=== PATIENT | female | born 1970 | race Caucasian/White ===

== ENCOUNTER 2017-03-18 20:45 | Emergency (ER) | payer MEDICARE ==
--- NOTE | 2017-03-18 21:24 | ERPHSYRPT ---
- History of Present Illness Time Seen by Provider: 03/18/17 21:20 Source: patient, family Exam Limitations: no limitations Patient Subjective Stated Complaint: struck lefty elbow on concrete 2 weeks ago post fall, no other complaints, pain worse in the mornings, no pcp, no meds, no past med issuse. Triage Nursing Assessment: struck lefty elbow on concrete 2 weeks ago post fall , no other complaints, pain worse in the mornings, no pcp, no meds, no past med issuse. no numbness or tingling, skin pwd, no swelling att this time, pt reports swelling in the am. Physician History: pt has fallen on left elbow 2 weeks ago and still has pain and sustained no other injuries and has no other medical complaints at this time; painful ROM left elbow and tender olecranon. Occurred: days ago Method of Injury: fell Quality: constant, aching, sharpness, throbbing Severity of Pain-Max: moderate Severity of Pain-Current: moderate Extremities Pain Location: elbow: left Modifying Factors: Improves With: cold therapy, immobilization Associated Symptoms: none Hx Tetanus, Diphtheria Vaccination/Date Given: Yes - Review of Systems Constitutional: No Fever, No Chills Eyes: No Symptoms Ears, Nose, & Throat: No Symptoms Respiratory: No Cough, No Dyspnea Cardiac: No Chest Pain, No Edema, No Syncope Abdominal/Gastrointestinal: No Abdominal Pain, No Nausea, No Vomiting, No Diarrhea Genitourinary Symptoms: No Dysuria Musculoskeletal: Injury, Joint Pain, No Back Pain, No Neck Pain Skin: No Rash Neurological: No Dizziness, No Focal Weakness, No Sensory Changes Psychological: No Symptoms Endocrine: No Symptoms All Other Systems: Reviewed and Negative - Past Medical History Pertinent Past Medical History: No - Past Surgical History Past Surgical History: No - Social History Smoking Status: Never smoker Exposure to second hand smoke: No Drug Use: none Patient Lives Alone: No - Female History Hx Now: No - Nursing Vital Signs Nursing Vital Signs: Initial Vital Signs Temperature 98.7 F 03/18/17 21:10 Pulse Rate 100 H 03/18/17 21:10 Respiratory Rate 12 03/18/17 21:10 Blood Pressure 120/80 03/18/17 21:10 O2 Sat by Pulse Oximetry 95 03/18/17 21:10 Pain Scale Pain Intensity 6 - Physical Exam General Appearance: alert Eyes, Ears, Nose, Throat Exam: moist mucous membranes Neck Exam: non-tender, supple Cardiovascular/Respiratory Exam: chest non-tender, normal breath sounds, regular rate/rhythm, no respiratory distress Abdominal Exam: non-tender, No guarding Back Exam: normal inspection, No vertebral tenderness Shoulder Exam: normal inspection, non-tender, no evidence of injury, normal ROM Elbow/Forearm Exam: bone tenderness, limited ROM, pain, soft tissue tenderness Wrist Exam: normal inspection, non-tender, no evidence of injury, normal ROM Hand Exam: normal inspection, non-tender, no evidence of injury, normal ROM DTR - Upper Extremity Exam: bicep (R): 2+, bicep (L): 2+, tricep (R): 2+, tricep (L): 2+ Neuro/Tendon Exam: normal sensation, normal motor functions, normal tendon functions, no evidence tendon injury Mental Status Exam: alert, oriented x 3, cooperative Skin Exam: normal color, warm, dry SpO2: 95 Oxygen Delivery: Room Air Procedures - Splinting Location of Splint: Left, Elbow Type of Splint: Orthoglass Long Arm Splint Splint Applied By: ED Nurse Pre-Proc Neuro Vasc Exam: normal Post-Proc Neuro Vasc Exam: neurovascular intact, unchanged from pre-exam - Radiology Exams Left Elbow X-ray Interpretation: Reviewed by me, Other (noobvious fracture but positive anterior fat pad ) Ordered Tests: Active Orders 24 hr Category Date Time Status ELBOW (MINIMUM 3 VIEWS) Stat Exams 03/18/17 21:25 Taken - Progress Progress: improved, re-examined Counseled pt/family regarding: diagnosis, need for follow-up, rad results - Departure Time of Disposition: 22:12 Departure Disposition: Home Clinical Impression: Elbow injury Condition: Good Critical Care Time: No Referrals: MAUREEN CASTRO MD [Primary Care Provider] - Instructions: Elbow Fracture Additional Instructions: We are treating the elbow like it could be fractured although the obvious fracture is not seen yet on x-ray but some indirect findings sugest the possible fracture; followup with your dr for ortho referral if indicated. Prescriptions: Hydrocodone Bit/Acetaminophen [[place] 5-325 Tablet] 1 each PO Q4-6HPRN PRN #10 tablet PRN Reason: Pain
[2017-03-18] MEDS ORDERED: NORCO 5/325 MG PO ONE (22:22)
[2017-03-18] MEDS ORDERED: NORCO 5/325 MG ONE (22:27)
[2017-03-18 22:40] VITALS: BP 131/75; PULSE 92; O2SAT 96
--- NOTE | 2017-03-19 09:04 | XRAY ---
Indication: Pain following injury. Comparison: None 3 views of the left elbow obtained. No bony, articular, or soft tissue abnormalities.
== END 2017-03-18 22:40 | disposition home or self-care (01) ==
LOC: ED 20:45
PROC: 2W39X1Z Immobilization of Left Upper Extremity using Splint (ICD-10-PCS; principal; 2017-03-18)
DX: S50.02XA Contusion of left elbow, initial encounter (principal); W19.XXXA Unspecified fall, initial encounter; M25.522 Pain in left elbow
CPT/HCPCS: 29105; 73080; 99283; A9270-GY

== ENCOUNTER 2017-06-18 08:43 | Emergency (ER) | payer MEDICARE ==
--- NOTE | 2017-06-18 09:22 | ERPHSYRPT ---
- History of Present Illness Time Seen by Provider: 06/18/17 09:01 Source: patient, family Exam Limitations: no limitations Physician History: The patient is a 47-year-old female with her daughter with a number of vague complaints that have been ongoing for several years. After repeated questioning , the patient states that this morning about 6 AM she had a shiver and a chill go up her spine and then had neck pain on the back side of her neck on the left side. She states that when she moves her head from side to side it makes her neck hurt. She states that sometimes she sees double but when she blinks her eyes she no longer sees double. She states that her right side of her body normally has some weakness. Today she states her left side is weaker. She tells me her strong hand is her right hand but she says that she is left- handed. Today she has a headache that comes and goes. Currently at this time she has no headache. She denies nausea, vomiting, or diarrhea. She denies fever or chills. She denies recent trauma. She states that she has chronic neck and chronic low back pain. 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 She has had cortisone injections in her neck and back for the pain in the past. She no longer takes any medicines. She had a doctor in a nearby town but no longer sees him. 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 Timing/Duration: today Severity: mild Modifying Factors: Improves With: movement Associated Symptoms: denies symptoms Allergies/Adverse Reactions: Penicillins Allergy (Verified 06/18/17 09:31) Hx Tetanus, Diphtheria Vaccination/Date Given: Yes - Review of Systems Constitutional: No Fever, No Chills Eyes: Vision Changes, Double Vision Ears, Nose, & Throat: No Symptoms Respiratory: No Cough, No Dyspnea Cardiac: No Chest Pain, No Edema, No Syncope Abdominal/Gastrointestinal: No Abdominal Pain, No Nausea, No Vomiting, No Diarrhea Genitourinary Symptoms: No Dysuria Musculoskeletal: Back Pain, Neck Pain Skin: No Rash Neurological: Dizziness, Headache, Vertigo Psychological: No Symptoms Endocrine: No Symptoms Hematologic/Lymphatic: No Symptoms Immunological/Allergic: No Symptoms All Other Systems: Reviewed and Negative - Past Medical History Pertinent Past Medical History: No - Past Surgical History Past Surgical History: No - Social History Smoking Status: Never smoker Exposure to second hand smoke: No Drug Use: none Patient Lives Alone: No - Nursing Vital Signs Nursing Vital Signs: Initial Vital Signs Temperature 98.6 F 06/18/17 08:49 Pulse Rate 89 06/18/17 08:49 Respiratory Rate 20 06/18/17 08:49 Blood Pressure 124/94 06/18/17 08:49 O2 Sat by Pulse Oximetry 99 06/18/17 08:49 Pain Scale Pain Intensity 2 - Physical Exam General Appearance: no apparent distress, alert Eye Exam: PERRL/EOMI, eyes nml inspection Ears, Nose, Throat Exam: normal ENT inspection, TMs normal, pharynx normal, moist mucous membranes Neck Exam: limited range of motion, other (disproportunate tenderness to light palpation at left posterior), No meningismus, No midline tenderness Respiratory Exam: normal breath sounds, lungs clear, No respiratory distress Cardiovascular Exam: regular rate/rhythm, normal heart sounds, normal peripheral pulses Gastrointestinal/Abdomen Exam: soft, normal bowel sounds, No tenderness, No mass Pelvic Exam: not done Rectal Exam: not done Back Exam: normal inspection, normal range of motion, No CVA tenderness, No vertebral tenderness Extremity Exam: normal inspection, normal range of motion, pelvis stable Neurologic Exam: alert, oriented x 3, cooperative, normal mood/affect, nml cerebellar function, motor weakness (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 mildly 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 then right hand and left foot.), 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 (Left V1 is negative sensory.) Skin Exam: normal color, warm, dry, No rash Lymphatic Exam: No adenopathy SpO2 Interpretation: normal Oxygen Delivery: Room Air - CT Exams Head CT Interpretation: Negative, Tele-radiologist Report, Other (mild paranasal sinus thickening but no evidence of acute intracranial pathology per Dr Ramsey ) Cervical Spine CT Interpretation: Negative, Tele-radiologist Report, Other (c-spine arthritis and broad-based disc bulge at C5-[address] Ramsey.) Ordered Tests: Active Orders 24 hr Category Date Time Status IV Insertion STAT Care 06/18/17 09:45 Active CERVICAL SPINE WO CONTRAST [CT] Stat Exams 06/18/17 09:46 Taken HEAD WITHOUT CONTRAST [CT] Stat Exams 06/18/17 09:46 Taken BMP Stat Lab 06/18/17 09:55 Completed CBC W DIFF Stat Lab 06/18/17 09:55 Completed PROTIME WITH INR Stat Lab 06/18/17 09:55 Completed UA W/RFX UR CULTURE Stat Lab 06/18/17 09:52 Ordered Urine Triage Profile Stat Lab 06/18/17 09:52 Ordered Medication Summary Discontinued Medications Generic Name Dose Route Start Last Admin Trade Name Shu PRN Reason Stop Dose Admin Ketorolac Tromethamine 30 mg 06/18/17 09:45 06/18/17 10:21 Toradol 30 Mg Injection IV 06/18/17 09:46 30 mg STAT ONE Administration Ketorolac Tromethamine Confirm 06/18/17 10:20 Toradol 30 Mg Injection Administered 06/18/17 10:21 Dose 30 mg .ROUTE .ITegris-Stockr ONE Lab/Rad Data: Laboratory Result Diagrams 06/18/17 09:55 06/18/17 09:55 Laboratory Results 06/18/17 06/18/17 06/18/17 Range/Units 09:55 09:55 09:55 WBC 8.6 (4.0-10.5) K/mm3 RBC 4.75 (4.1-5.4) M/mm3 Hgb 14.9 (12.0-16.0) gm/dl Hct 43.4 (35-47) % MCV 91.4 (78-100) fl MCH 31.4 (26-32) pg MCHC 34.3 (32-36) g/dl RDW 13.2 (11.5-14.0) % Plt Count 258 (150-450) K/mm3 MPV 9.7 H (6-9.5) fl Gran % 52.3 (36.0-66.0) % Lymphocytes % 38.0 (24.0-44.0) % Monocytes % 7.8 (0.0-12.0) % Eosinophils % 1.7 (0.00-5.0) % Basophils % 0.2 (0.0-0.4) % Basophils # 0.02 (0-0.4) INR 1.07 (0.8-3.0) Sodium 144 (136-145) mEq/L Potassium 4.5 (3.5-5.1) mEq/L Chloride 108 H (98-107) mEq/L Carbon Dioxide 25.2 (21-32) mEq/L Anion Gap 15.2 H (5-15) MEQ/L BUN 12 (9-20) mg/dL Creatinine 0.63 (0.55-1.30) mg/dl Estimated GFR > 60 ML/MIN Glucose 104 (70-110) MG/DL Calcium 9.1 (8.5-10.1) mg/dL - Progress Progress: improved Counseled pt/family regarding: lab results, diagnosis, need for follow-up, rad results - Departure Time of Disposition: 10:36 Departure Disposition: Home Clinical Impression: Neck pain Condition: Stable Critical Care Time: No Referrals: DOCTOR,NO FAMILY [Primary Care Provider] - Additional Instructions: You have neck pain and an intermittent headache. The head CT was normal and the neck CT showed arthritis. You were given Toradol 30 mg by IV in the ER. Take Flexeril 5 mg every 8 hours as needed and take naproxen 500 mg every 12 hours as needed. I recommend that you follow-up with your primary care doctor who can help you obtain evaluation by a neurologist for the variety of neurologic symptoms you are experiencing. Prescriptions: Cyclobenzaprine HCl [Flexeril] 5 mg PO Q8H PRN PRN #10 tablet PRN Reason: Moderate Pain Naproxen 500 mg PO BID PRN #30 tablet.
[2017-06-18] MEDS ORDERED: TORAdol 30 mg Injection IV ONE (09:45)
[2017-06-18 10:12] LABS: BASOPHIL % 0.2 % (0.0-0.4); Basophil (Absolute #) 0.02 (0-0.4); Eosinophil % 1.7 % (0.00-5.0); Eosinophil (Absolute #) 0.15 (0-0.5); Granulocyte Absolute (ANC) 4.49 (1.4-6.9); Granulocytes % 52.3 % (36.0-66.0); Hematocrit 43.4 % (35-47); Hemoglobin 14.9 gm/dl (12.0-16.0); Lymphocyte (Absolute #) 3.26 (1.0-4.6); Mean Cell Volume 91.4 fl (78-100); Mean Corpuscular Hemoglobin 31.4 pg (26-32); Mean Corpuscular Hgb Concent. 34.3 g/dl (32-36); Mean Platelet Volume 9.7 fl (6-9.5); Monocyte (Absolute #) 0.67 (0.0-1.3); Monocytes % 7.8 % (0.0-12.0); Platelet Count 258 K/mm3 (150-450); Red Blood Count 4.75 M/mm3 (4.1-5.4); Red Cell Distribution Width 13.2 % (11.5-14.0); White Blood Count 8.6 K/mm3 (4.0-10.5)
[2017-06-18 10:14] LABS: INR 1.07 (0.8-3.0)
[2017-06-18 10:17] LABS: ANION GAP 15.2 MEQ/L (5-15); BLOOD UREA NITROGEN 12 mg/dL (9-20); CHLORIDE 108 mEq/L (98-107); Calcium 9.1 mg/dL (8.5-10.1); Carbon Dioxide 25.2 mEq/L (21-32); Creatinine 1 0.63 mg/dl (0.55-1.30); EST GLOMERULAR FILTRATION RATE > 60 ML/MIN; Glucose 104 MG/DL (70-110); Potassium 4.5 mEq/L (3.5-5.1); SODIUM 144 mEq/L (136-145)
[2017-06-18] MEDS ORDERED: TORAdol 30 mg Injection ONE (10:20)
[2017-06-18 10:40] LABS: Appearance CLEAR (CLEAR); Bilirubin NEGATIVE (NEGATIVE); Blood NEGATIVE Ery/ul (0-5); Glucose NEGATIVE (NEGATIVE); Ketones NEGATIVE (NEGATIVE); Leukocyte Esterase NEGATIVE (NEGATIVE); Nitrite NEGATIVE (NEGATIVE); Protein,Urine Dip NEGATIVE (Negative); Urobilinogen NORMAL mg/dL (0-1)
[2017-06-18 10:52] LABS: Amphetamine,Urine NEG. (NEGATIVE); Barbiturate,Urine NEG. (NEGATIVE); Benzodiazepine,Urine NEG. (NEGATIVE); Cocaine,Urine NEG. (NEGATIVE); Methadone,Urine NEG. (NEGATIVE); Opiate,Urine NEG. (NEGATIVE); PCP,Urine NEG. (NEGATIVE); THC,Urine NEG. (NEGATIVE)
[2017-06-18 11:17] VITALS: BP 111/89; PULSE 70; O2SAT 99
--- NOTE | 2017-06-18 21:43 | XRAY ---
Indication: Chronic neck pain radiating to head. Multiple contiguous axial images obtained through the head without contrast. Comparison: None Normal appearing brain parenchyma, ventricles, and bony calvarium. Visualized paranasal sinuses and mastoid air cells are clear. Impression: Normal CT head without contrast exam. Comment: Preliminary interpretation was made by [facility]. No discrepancy. CTDI 70.38
--- NOTE | 2017-06-18 21:45 | XRAY ---
Indication: Chronic neck pain radiating to head. Multiple contiguous axial images obtained through the cervical spine. Sagittal and coronal reformatted images obtained. Comparison: None Axial images negative for acute fracture, suspicious bone lesions, or spinal canal stenosis. Mild/moderate C4-C6 degenerative endplate spurring. Sagittal and coronal reformatted images demonstrates mild reversal of the cervical lordosis, positional versus paraspinal muscular spasm. C5-C6 disc space narrowing with lesser degree at C4-C5 level. No acute compression fracture, subluxation, or jump facet. Normal-appearing craniocervical junction. Visualized noncontrasted soft tissues unremarkable. Mild apical dependent atelectasis. CT head reported separately. Impression: 1. Lordotic reversal, positional versus paraspinal spasm. 2. Negative acute fracture, subluxation, or canal stenosis. 3. C4-C6 degenerative disc disease. Comment: Preliminary interpretation was made by [facility]. No discrepancy. CTDI 108.38
== END 2017-06-18 11:13 | disposition home or self-care (01) ==
LOC: ED 08:43
DX: M54.2 Cervicalgia (principal); R51 Headache; M54.9 Dorsalgia, unspecified
CPT/HCPCS: 36000; 36415; 70450; 72125; 80048; 80307; 81002; 85025; 85610; 96374; 99284; J1885